=== PATIENT | female | born 2000 ===

== ENCOUNTER → 2022-03-29 | Outpatient (REF) | LOC: M EMP 14:18 | PROVIDERS: ATTEND Family Medicine | DX: Z11.52 Encounter for screening for COVID-19 (principal) ==

== ENCOUNTER → 2022-04-06 | Outpatient (REF) | LOC: M EMP 09:20 | PROVIDERS: ATTEND Family Medicine | DX: Z11.52 Encounter for screening for COVID-19 (principal) ==

== ENCOUNTER 2023-11-28 21:42 | Inpatient (IN) | payer OTHER, SELFPAY ==
[~2023-11-28] VITALS: Ht 149.9 cm; Wt 55.5 kg
[2023-11-28 21:48] VITALS: BP 129/72
[2023-11-28] MEDS ORDERED: METHYLERGONOVINE MALEATE 0.2MG/ML 1ML VIAL IM PRN (21:50)
[2023-11-28] MEDS ORDERED: LIDOCAINE 1% MDV 20ML VIAL INFIL PRN (21:50)
[2023-11-28] MEDS ORDERED: TRANEXAMIC ACID INJection 1,000 MG in NS 100 ML IV PRN (21:50)
[2023-11-28] MEDS ORDERED: CARBOPROST TROMETHAMINE 250 MCG/ML AMP IM PRN (21:50)
[2023-11-28] MEDS ORDERED: OXYTOCIN INJ 10UNITS/ML 1ML VIAL IM PRN (21:50)
[2023-11-28] MEDS ORDERED: OXYTOCIN DRIP 30 UNITS in IV 1 EA IV PRN (21:50)
[2023-11-28] MEDS ORDERED: PRENTAB9 PO (21:56)
[2023-11-28] MEDS ORDERED: NOXI1TAB PO (21:56)
[2023-11-28] MEDS ORDERED: HOME MED LIST COMPLETE! XX SCH (22:00)
[2023-11-28] MEDS: BETAMETHASONE SOLUSPAN 6MG/ML 5ML VIAL IM SCH (22:20)
[2023-11-29] VITALS (19 sets, daily range): BP systolic 93–134; BP diastolic 53–81; O2SAT 98–99
[2023-11-29] MEDS: PEN G POT 3,000,000 UNIT/50 ML 3,000,000 UNIT in IV 1 EA IV SCH (02:11)
[2023-11-29 02:20] LABS: AMPHETAMINES URINE REFLEX NEGATIVE (NEGATIVE); BARBITURATES URINE REFLEX NEGATIVE (NEGATIVE); BENZODIAZEPINES URINE REFLEX NEGATIVE (NEGATIVE); COCAINE METABOLITE URINE REFLE NEGATIVE (NEGATIVE); METHADONE URINE REFLEX NEGATIVE (NEGATIVE); OPIATES URINE REFLEX NEGATIVE (NEGATIVE); PHENCYCLIDINE URINE REFLEX NEGATIVE (NEGATIVE)
[2023-11-29 02:21] LABS: CANNABINOIDS URINE REFLEX NEGATIVE (NEGATIVE)
[2023-11-29 03:12] LABS: HEMATOCRIT 28.6 % (36.0-47.0); HEMOGLOBIN 9.3 g/dl (12.0-15.5); MEAN CORPUSCULAR HEMOGLOBIN 27.7 pg (27.0-33.0); MEAN CORPUSCULAR HGB CONC 32.5 g/dl (32.0-36.5); MEAN CORPUSCULAR VOLUME 85.1 fl (80.0-96.0); PLATELET COUNT, AUTOMATED 242 10^3/uL (150-450); RED BLOOD COUNT 3.36 10^6/uL (4.00-5.40); WHITE BLOOD COUNT 18.1 10^3/uL (4.0-10.0)
[2023-11-29] MEDS: OXYTOCIN DRIP 30 UNITS in IV 1 EA IV SCH ×2 (03:17→09:39)
[2023-11-29] MEDS: LR 1,000 ML IV SCH (03:17)
[2023-11-29 04:09] LABS: HIV 1&2 SCREEN NEGATIVE (NEGATIVE)
[2023-11-29 04:22] LABS: HEPATITIS C VIRUS ABY INDEX < 0.02 INDEX (<0.8)
[2023-11-29 08:53] LABS: CORD GAS ABE A -4.8; CORD GAS ABE V -4.9; CORD GAS HCO3 A 22.7 MMOL/L; CORD GAS HCO3 V 19.8 MMOL/L; CORD GAS O2 SAT A 41.3 %; CORD GAS O2 SAT V 77.6 %; CORD GAS PCO2 A 50.3 mmHg; CORD GAS PCO2 V 36.5 mmHg; CORD GAS PH A 7.272 UNITS; CORD GAS PH V 7.353 UNITS; CORD GAS PO2 A 17.7 mmHg; CORD GAS PO2 V 30.1 mmHg; CORD GAS SBC A 19.1 MMOL/L; CORD GAS TCO2 A 24.2 MMOL/L
[2023-11-29] MEDS ORDERED: MOM 30ML SUSPENSION UDC PO PRN (08:55)
[2023-11-29] MEDS ORDERED: DOCUSATE SODIUM 100MG CAPSULE PO PRN (08:55)
[2023-11-29] MEDS ORDERED: DIBUCAINE 1% OINTMENT 30GM TOP PRN (08:55)
[2023-11-29] MEDS ORDERED: RHO(D) IMMUNE GLOBULIN/MALTOSE 500MCG(2500IU)/2.2ML VIAL (WINRHO) IM SCH (08:55)
[2023-11-29] MEDS ORDERED: ANUSOL HC CREAM 30GM TOP PRN (08:55)
[2023-11-29] MEDS ORDERED: PRENATAL VITAMINS CHEWABLE TABLET PO SCH (09:00)
[2023-11-29] MEDS: PRENATAL VITAMINS CHEWABLE TABLET PO SCH (09:00)
[2023-11-29] MEDS ORDERED: OXYTOCIN 30UNITS IN 0.9% NaCl 500ML IV BAG As Ordered ONE (09:21)
[2023-11-29] MEDS: IBUPROFEN 800 MG TAB PO PRN (21:22)
[2023-11-30 06:00] VITALS: BP 110/67; O2SAT 99
[2023-11-30] MEDS: ACETAMINOPHEN 500 MG TAB PO PRN (07:35)
[2023-11-30] MEDS: BOOSTRIX VACCINE (TETANUS/DIPHTH/ACEL. PERTUSSIS) 0.5ML SYR IM.IMMUN ONE (07:36)
== END 2023-11-30 14:25 | disposition home or self-care (01) | DRG 560 ==
LOC: M LDI 21:42 → M OBS 11-29 10:40
PROVIDERS: ADMIT Advanced Practice Midwife; ATTEND Obstetrics & Gynecology
PROC: 10E0XZZ Delivery of Products of Conception, External Approach (ICD-10-PCS; principal; 2023-11-29)
DX: O42.013 Preterm premature rupture of membranes, onset of labor within 24 hours of rupture, third trimester (principal); F17.200 Nicotine dependence, unspecified, uncomplicated; Z91.048 Other nonmedicinal substance allergy status; O99.334 Smoking (tobacco) complicating childbirth; Z37.0 Single live birth; Z88.6 Allergy status to analgesic agent; Z3A.34 34 weeks gestation of pregnancy